=== PATIENT | female | born 1985 | race Caucasian/White ===

== ENCOUNTER 2018-05-22 18:10 | Emergency (ER) | payer MEDICAID, OTHER ==
[~2018-05-22] VITALS: Wt 73.6 kg
--- NOTE | 2018-05-22 21:21 | ERD ---
ER Documentation Chief Complaint Chief Complaint ON AND OFF CHEST WALL PAIN X4 DAYS HPI 33-year-old female, 4-day's 3-year-old female, presents to the emergency department, complaining of 4 days with upper respiratory symptoms including cough, runny nose and chest congestion. The patient is concerned because she developed chest pain during the last 3 days, the pain is anterior, sharp, worsened by deep inspiration and palpation. She denies dizziness, no palpitations, no shortness of breath. ROS All systems reviewed and are negative except as per history of present illness. Allergies Allergies: Coded Allergies: No Known Drug Allergy (Verified Allergy, Unknown, 05/08/09) FmHx Family History: No diabetes, No coronary disease Physical Exam Vitals Vital Signs Date Temp Pulse Resp B/P (MAP) Pulse Ox O2 O2 Flow FiO2 Time Delivery Rate 05/22/18 99.2 103 17 148/89 100 18:16 (108) Physical Exam Const: No acute distress Head: Atraumatic Eyes: Normal Conjunctiva ENT: Normal External Ears, Nose and Mouth. Neck: Full range of motion. No meningismus. Resp: Clear to auscultation bilaterally Cardio: Regular rate and rhythm, no murmurs Abd: Soft, non tender, non distended. Normal bowel sounds Skin: No petechiae or rashes Back: No midline or flank tenderness Ext: No cyanosis, or edema Neur: Awake and alert Psych: Normal Mood and Affect Results 24 hrs EKG read by me: Rate/Rhythm: Regular rate and rhythm at a rate of 107 Intervals: Normal No acute ST changes. No T wave inversion Impression: No evidence of acute ischemia or arrhythmia Procedures/MDM Vital signs stable. Differential diagnosis include but not limited to: URI, PNA, chostochondritis, GERD, musculoskeletal injury, less likely PE, pericarditis, endocarditis. Pertinent Data: 12 Lead ECG: Sinus rhythm, no ST changes, normal T wave, normal intervals Radiology: Chest x-rays: Normal Physical examination and clinical presentation consistent most likely with atypical chest pain most likely secondary to costochondritis. During the ED course the patient remained stable, no new complaints. Results and clinical impression discussed with patient who agrees with management. The patient is stable to be treated outpatient and will be discharged home with a Rx for ibuprofen; some side effects of prescribed medications (headache, rash, nausea, vomiting, diarrhea, drowsiness, habituation, bleeding, hypertension, interactions with other medications) were reviewed. The patient was instructed to follow up with the primary care provider in the next 48h. If symptoms persist, worsen or new symptoms develop, then patient should return to the ED immediately. Instructions explained and given directly by me to the patient with acknowledgment and demonstrated understanding. Disclaimer: Inadvertent spelling and grammatical errors are likely due to EHR/dictation software use and do not reflect on the overall quality of patient care. Also, please note that the electronic time recorded on this note does not necessarily reflect the actual time of the patient encounter. Departure Diagnosis: Primary Impression: Chest wall pain Additional Impression: Asthma Condition: Stable Additional Instructions: Thank you very much for allowing us to participate in your care. Your health and safety is our top priority at [facility]. Call your primary care doctor TOMORROW for an appointment during the next 2-4 days and bring all the information and medications prescribed. Have prescriptions filled and follow precisely the directions on the label. If the symptoms get worse and your provider is unavailable, return to the Emergency Department immediately. NEGRA PARISI MD May 22, 2018 21:21
[2018-05-22] MEDS ORDERED: ALBU8.5H8 INH (22:16)
[2018-05-22] MEDS ORDERED: ACET325T33 PO (22:17)
[2018-05-22 22:25] VITALS: BP 134/84; PULSE 84; RESP 18
== END 2018-05-22 22:27 | disposition home or self-care (01) ==
LOC: FTE 18:10
DX: R07.89 Other chest pain (principal); J45.909 Unspecified asthma, uncomplicated
CPT/HCPCS: 71046; 93005